=== PATIENT | female | born 1985 | race Caucasian/White ===

== ENCOUNTER 2021-03-19 00:53 | Emergency (ER) | payer SELFPAY ==
[2021-03-19] MEDS ORDERED: Sodium Chloride 0.9% 1000 ML 1,000 ML ONE (01:14)
--- NOTE | 2021-03-19 01:14 | ERPHSYRPT ---
- History of Present Illness Time Seen by Provider: 03/19/21 01:11 Source: EMS Exam Limitations: intoxication Physician History: 35-year-old white female who according to EMS drinking 1/5 and a half of fireball this evening they were called because she was unresponsive. On arrival they found she would respond to a sternal rub and she would occasionally open her eyes spontaneously but would not communicate. Timing/Duration: today Severity of Symptoms-Max: severe Severity of Symptoms-Current: severe (Very intoxicated) Allergies/Adverse Reactions: Penicillins Allergy (Intermediate, Verified 03/19/21 01:26) Home Medications: No Reportable Medications [No Reported Medications] 03/19/21 [History] - Review of Systems All Other Systems: Unable due to condition - Nursing Vital Signs Nursing Vital Signs: Initial Vital Signs Temperature 98.2 F 03/19/21 01:05 Pulse Rate 106 H 03/19/21 01:05 Respiratory Rate 18 03/19/21 01:05 Blood Pressure 166/105 03/19/21 01:05 O2 Sat by Pulse Oximetry 97 03/19/21 01:05 Pain Scale Pain Intensity 0 - Physical Exam General Appearance: no apparent distress, obese (Morbidly obese white female extremely intoxicated) Eyes, Ears, Nose, Throat Exam: normal ENT inspection, moist mucous membranes Neck Exam: normal inspection, non-tender, supple Respiratory Exam: normal breath sounds, lungs clear, No respiratory distress Cardiovascular Exam: regular rate/rhythm, No edema Gastrointestinal/Abdominal Exam: soft, No tenderness, No distention Extremities Exam: normal inspection, normal range of motion, No evidence of injury, No edema Current Suicidality: denies suicide plan Neurological Exam: responds to pain Behavior/Eye Contact/Speech: refused to answer, uncooperative, intoxicated appearance Skin Exam: normal color, warm, dry, No rash - Course Nursing assessment & vital signs reviewed: Yes Ordered Tests: Active Orders 24 hr Category Date Time Status ACETAMINOPHEN Stat Lab 03/19/21 01:09 Ordered CBC W DIFF Stat Lab 03/19/21 01:09 Ordered CMP Stat Lab 03/19/21 01:09 Ordered ETHYL ALCOHOL Stat Lab 03/19/21 01:09 Ordered HCG QUALITATIVE,SERUM Stat Lab 03/19/21 Ordered Lactic Acid Stat Lab 03/19/21 01:09 Ordered SALICYLATE Stat Lab 03/19/21 01:09 Ordered UA W/RFX UR CULTURE Stat Lab 03/19/21 01:09 Ordered Urine Triage Profile Stat Lab 03/19/21 01:09 Ordered Medication Summary Generic Name Dose Route Start Last Admin Trade Name Elieser PRN Reason Stop Dose Admin Sodium Chloride 1,000 mls @ 100 mls/hr 03/19/21 01:15 03/19/21 01:14 Sodium Chloride 0.9% 1000 Ml IV 04/18/21 01:14 100 mls/hr .Q10H SHANAE Administration Lab/Rad Data: Laboratory Result Diagrams 03/19/21 01:30 03/19/21 01:30 Laboratory Results 03/19/21 03/19/21 03/19/21 Range/Units 01:35 01:30 01:30 WBC (4.0-10.5) K/mm3 RBC (4.1-5.4) M/mm3 Hgb (12.0-16.0) gm/dl Hct (35-47) % MCV (78-100) fl MCH (26-32) pg MCHC (32-36) g/dl RDW (11.5-14.0) % Plt Count (150-450) K/mm3 MPV (7.5-11.0) fl Gran % (36.0-66.0) % Eos # (Auto) (0-0.5) Absolute Lymphs (auto) (1.0-4.6) Absolute Monos (auto) (0.0-1.3) Lymphocytes % (24.0-44.0) % Monocytes % (0.0-12.0) % Eosinophils % (0.00-5.0) % Basophils % (0.0-0.4) % Absolute Granulocytes (1.4-6.9) Basophils # (0-0.4) Sodium 146 H (137-145) mmol/L Potassium 3.6 (3.5-5.1) mmol/L Chloride 110 H (98-107) mmol/L Carbon Dioxide 24 (22-30) mmol/L Anion Gap 15.7 H (5-15) MEQ/L BUN 10 (7-17) mg/dL Creatinine 0.67 (0.52-1.04) mg/dL Estimated GFR > 60.0 ML/MIN Glucose 124 H (74-106) mg/dL Lactic Acid 1.9 (0.4-2.0) Calcium 9.1 (8.4-10.2) mg/dL Total Bilirubin 0.10 L (0.2-1.3) mg/dL AST 25 (14-36) U/L ALT 26 (0-35) U/L Alkaline Phosphatase 107 (38-126) U/L Serum Total Protein 7.6 (6.3-8.2) g/dL Albumin 4.4 (3.5-5.0) g/dL Serum , Qual NEGATIVE (Negative) Salicylates < 1.0 L (2-20) mg/dL Acetaminophen < 10 L (10-30) ug/ml Ethyl Alcohol 112 H (0-10) mg/dL 03/19/21 Range/Units 01:30 WBC 12.8 H (4.0-10.5) K/mm3 RBC 4.89 (4.1-5.4) M/mm3 Hgb 14.6 (12.0-16.0) gm/dl Hct 45.3 (35-47) % MCV 92.6 (78-100) fl MCH 29.9 (26-32) pg MCHC 32.2 (32-36) g/dl RDW 14.1 H (11.5-14.0) % Plt Count 263 (150-450) K/mm3 MPV 10.3 (7.5-11.0) fl Gran % 74.3 H (36.0-66.0) % Eos # (Auto) 0.13 (0-0.5) Absolute Lymphs (auto) 2.43 (1.0-4.6) Absolute Monos (auto) 0.69 (0.0-1.3) Lymphocytes % 19.1 L (24.0-44.0) % Monocytes % 5.4 (0.0-12.0) % Eosinophils % 1.0 (0.00-5.0) % Basophils % 0.2 (0.0-0.4) % Absolute Granulocytes 9.47 H (1.4-6.9) Basophils # 0.03 (0-0.4) Sodium (137-145) mmol/L Potassium (3.5-5.1) mmol/L Chloride (98-107) mmol/L Carbon Dioxide (22-30) mmol/L Anion Gap (5-15) MEQ/L BUN (7-17) mg/dL Creatinine (0.52-1.04) mg/dL Estimated GFR ML/MIN Glucose (74-106) mg/dL Lactic Acid (0.4-2.0) Calcium (8.4-10.2) mg/dL Total Bilirubin (0.2-1.3) mg/dL AST (14-36) U/L ALT (0-35) U/L Alkaline Phosphatase (38-126) U/L Serum Total Protein (6.3-8.2) g/dL Albumin (3.5-5.0) g/dL Serum , Qual (Negative) Salicylates (2-20) mg/dL Acetaminophen (10-30) ug/ml Ethyl Alcohol (0-10) mg/dL - Progress Progress: improved - Departure Departure Disposition: Home Clinical Impression: Alcohol intoxication Condition: Stable Critical Care Time: No Instructions: Alcohol Abuse and Alcoholism (DC)
[2021-03-19] MEDS ORDERED: Sodium Chloride 0.9% 1000 ML 1,000 ML IV SCH (01:15)
[2021-03-19 01:20] VITALS: BP 166/105; O2SAT 97
[2021-03-19 01:35] LABS: Absolute Neutrophil Ct (ANC) 9.47 (1.4-6.9); BASOPHIL % 0.2 % (0.0-0.4); Basophil (Absolute #) 0.03 (0-0.4); Eosinophil (Absolute #) 0.13 (0-0.5); Hematocrit 45.3 % (35-47); Hemoglobin 14.6 gm/dl (12.0-16.0); Lymphocyte (Absolute #) 2.43 (1.0-4.6); Lymphocytes % 19.1 % (24.0-44.0); Mean Cell Volume 92.6 fl (78-100); Mean Corpuscular Hemoglobin 29.9 pg (26-32); Mean Corpuscular Hgb Concent. 32.2 g/dl (32-36); Mean Platelet Volume 10.3 fl (7.5-11.0); Monocyte (Absolute #) 0.69 (0.0-1.3); Monocytes % 5.4 % (0.0-12.0); Neutrophil % 74.3 % (36.0-66.0); Platelet Count 263 K/mm3 (150-450); Red Blood Count 4.89 M/mm3 (4.1-5.4); Red Cell Distribution Width 14.1 % (11.5-14.0); White Blood Count 12.8 K/mm3 (4.0-10.5)
[2021-03-19 01:46] LABS: ACETAMINOPHEN < 10 ug/ml (10-30); ALBUMIN 4.4 g/dL (3.5-5.0); ALKALINE PHOSPHATASE 107 U/L (38-126); ANION GAP 15.7 MEQ/L (5-15); BLOOD UREA NITROGEN 10 mg/dL (7-17); CHLORIDE 110 mmol/L (98-107); Calcium 9.1 mg/dL (8.4-10.2); Carbon Dioxide 24 mmol/L (22-30); Creatinine 1 0.67 mg/dL (0.52-1.04); EST GLOMERULAR FILTRATION RATE > 60.0 ML/MIN; ETHYL ALCOHOL 112 mg/dL (0-10); Glucose 124 mg/dL (74-106); Potassium 3.6 mmol/L (3.5-5.1); SALICYLATE < 1.0 mg/dL (2-20); SGOT/AST 25 U/L (14-36); SGPT/ALT 26 U/L (0-35); SODIUM 146 mmol/L (137-145); Total Protein 7.6 g/dL (6.3-8.2)
[2021-03-19 02:12] VITALS: PULSE 89
== END 2021-03-19 02:03 | disposition home or self-care (01) ==
LOC: ED 00:53
DX: F10.129 Alcohol abuse with intoxication, unspecified (principal)
CPT/HCPCS: 36415; 80053; 80307; 81025; 83605; 85025; 99284; G0480

== ENCOUNTER 2022-03-29 19:09 | Emergency (ER) | payer SELFPAY ==
--- NOTE | 2022-03-29 19:38 | ERPHSYRPT ---
- History of Present Illness Source: patient Exam Limitations: no limitations Patient Subjective Stated Complaint: pt states that she was getting in to bed three weeks ago and hurt her right ankle and foot. top of foot is swollen as well as ankle. Triage Nursing Assessment: pt is alert and oriented, states pain in gagandeep is 5/10. Physician History: 36 yo WF w R foot/ankle pain x 3wks. Pt states that it started hurting after getting out of the shower but denies traumatic injury. Pain worse w weight bearing. She denies calf pain/chest pain/dyspnea. Method of Injury: unknown Occurred: other (3 wks) Quality: constant, aching Severity of Pain-Max: moderate Severity of Pain-Current: moderate Lower Extremities Pain: foot: right, ankle: right Modifying Factors: Improves With: movement Associated Symptoms: none Allergies/Adverse Reactions: Penicillins Allergy (Intermediate, Verified 03/29/22 19:23) Home Medications: No Reportable Medications [No Reported Medications] 03/19/21 [History] Hx Tetanus, Diphtheria Vaccination/Date Given: Yes Hx Influenza Vaccination/Date Given: No Hx Pneumococcal Vaccination/Date Given: No Travel Risk - International Travel Have you traveled outside of the country in past 3 weeks: No - Coronavirus Screening Are you exhibiting any of the following symptoms?: No Close contact with a COVID-19 positive Pt in past 14-21 Days: No - Vaccine Status Have you recieved a Covid-19 vaccination: No - Review of Systems Constitutional: No Symptoms Eyes: No Symptoms Ears, Nose, & Throat: No Symptoms Respiratory: No Symptoms Cardiac: No Symptoms Abdominal/Gastrointestinal: No Symptoms Genitourinary Symptoms: No Symptoms Musculoskeletal: Arthralgias Skin: No Symptoms Neurological: No Symptoms Psychological: No Symptoms Endocrine: No Symptoms Hematologic/Lymphatic: No Symptoms Immunological/Allergic: No Symptoms - Past Medical History Pertinent Past Medical History: Yes Cardiac History: Hypertension Respiratory History: Asthma Other Medical History: per pt, low blood sugar - Past Surgical History Past Surgical History: Yes Gastrointestinal: Cholecystectomy - Social History Smoking Status: Current every day smoker How long have you smoked: 20yrs Exposure to second hand smoke: Yes Drug Use: none Patient Lives Alone: No Significant Family History: no pertinent family hx - Female History Hx Last Menstrual Period: 03/27/22 Hx Now: No - Nursing Vital Signs Nursing Vital Signs: Initial Vital Signs Temperature 97.6 F 03/29/22 19:14 Pulse Rate 130 H 03/29/22 19:14 Respiratory Rate 16 03/29/22 19:14 Blood Pressure 175/100 03/29/22 19:14 O2 Sat by Pulse Oximetry 96 03/29/22 19:14 Pain Scale Pain Intensity 5 Tachy/hypertensive - Physical Exam General Appearance: no apparent distress (Exam difficult due to morbid obesity) Eyes, Ears, Nose, Throat Exam: normal ENT inspection, TMs normal, pharynx normal, moist mucous membranes Neck Exam: normal inspection, non-tender, supple, full range of motion, No Br udzinski, No Kernig's, No meningismus Cardiovascular/Respiratory Exam: normal breath sounds, no respiratory distress, tachycardia Gastrointestinal/Abdominal Exam: non-tender, soft, no organomegaly Back Exam: normal inspection, normal range of motion, No CVA tenderness, No vertebral tenderness Hips Exam: bilateral: non-tender, normal inspection, normal range of motion, no evidence of injury Legs Exam: bilateral leg: non-tender, normal inspection, normal range of motion, no evidence of injury Knees Exam: bilateral knee: non-tender, normal inspection, normal range of motion, no evidence of injury Ankle Exam: right ankle: bone tenderness (Mild TTP anteriorly/Minimal edema/Good pedal pulse, distal sensation, and capillary return) Foot Exam: right foot: bone tenderness (TTP Later R foot/Minimal edema/Good pedal pulse, distal sensation, and capillary return) DTR - Lower Extremities Exam: knee (R): 2+, knee (L): 2+ Neuro/Tendon Exam: normal sensation, normal motor functions, normal tendon functions, responds to pain, no evidence tendon injury, No motor deficit, No sensory deficit Mental Status Exam: alert, oriented x 3, cooperative Skin Exam: normal color, warm, dry SpO2 Interpretation: normal SpO2: 96 O2 Delivery: Room Air - Course Nursing assessment & vital signs reviewed: Yes - Radiology Exams Ankle X-ray Interpretation: Interpreted by me (R ankle neg per ER read) Foot X-ray Interpretation: Interpreted by me (R foot neg per ER read) Ordered Tests: Active Orders 24 hr Category Date Time Status Francisco Bandage Application -[facility] STAT Care 03/29/22 20:08 Completed ANKLE (3 VIEWS) Stat Exams 03/29/22 19:47 Completed FOOT (MINIMUM 3 VIEWS) Stat Exams 03/29/22 19:47 Completed Medication Summary Discontinued Medications Generic Name Dose Route Start Last Admin Trade Name Elieser PRN Reason Stop Dose Admin Ketorolac Tromethamine 30 mg 03/29/22 20:08 03/29/22 20:19 Ketorolac Tromethamine 30 Mg/Ml Inj IM 03/29/22 20:09 30 mg STAT ONE Administration Ketorolac Tromethamine Confirm 03/29/22 20:19 Ketorolac Tromethamine 30 Mg/Ml Inj Administered 03/29/22 20:20 Dose 30 mg .ROUTE .STK-MED ONE - Progress Progress Note: 03/29/22 20:09 30mg IM Toradol Francisco wrap R ankle/foot per nursing/NVI Counseled pt/family regarding: diagnosis, need for follow-up, rad results - Departure Departure Disposition: Home Clinical Impression: Foot pain, right, Ankle pain, right Condition: Stable Critical Care Time: No Referrals: DOCTOR,NO FAMILY [Primary Care Provider] - Follow up/PCP as directed ORTHO - [employer] [NON-STAFF PHY W/O PRIVILEGES] - Follow up/PCP as directed Instructions: Ankle Sprain (DC), Foot Sprain (DC) Additional Instructions: Francisco wrap for 2-3 days Motrin/Tylenol for pain Follow up with your family MD or Orthopedic clinic for continued pain
[2022-03-29] MEDS ORDERED: TORAdol 30 mg Injection IM ONE (20:08)
[2022-03-29] MEDS ORDERED: TORAdol 30 mg Injection ONE (20:19)
[2022-03-29 20:25] VITALS: BP 155/96; PULSE 93
[2022-03-29 20:33] VITALS: O2SAT 96
--- NOTE | 2022-03-29 22:25 | XRAY ---
Indication: Pain 3 weeks. Comparison: None 3 nonweightbearing views right foot demonstrates mild talotibial degenerative changes with tiny anterior heterotopic ossification and tiny plantar heel spur. No other bony, articular, or soft tissue abnormalities.
--- NOTE | 2022-03-29 22:25 | XRAY ---
Indication: Pain 3 weeks. Comparison: None 3 view right ankle demonstrates mild talotibial degenerative changes with tiny anterior heterotopic ossification and tiny plantar heel spur. No other bony, articular, or soft tissue abnormalities.
== END 2022-03-29 20:43 | disposition home or self-care (01) ==
LOC: ED 19:09
DX: M25.571 Pain in right ankle and joints of right foot (principal); I10 Essential (primary) hypertension; Z72.0 Tobacco use; Z28.310 Unvaccinated for COVID-19
CPT/HCPCS: 73610; 73630; 96372; 99283; J1885